=== PATIENT | male | born 1965 | race Caucasian/White ===

== ENCOUNTER 2019-09-01 22:01 | Outpatient (REF) | payer BC, SELFPAY ==
[2019-09-01 22:22] LABS: Absolute Basophil Count 0.03 k/cumm (0.0-0.2); Absolute Eosinophil Count 0.09 k/cumm (0.0-0.7); Absolute Lymphocyte Count 1.41 k/cumm (1.2-3.4); Absolute Monocyte Count 0.46 k/cumm (0.11-0.7); Absolute Neutrophil Count 2.95 k/cumm (1.2-6.7); Basophils % 0.6; Eosinophils % 1.8; HCT 45.7 % (40.0-50.0); HGB 15.7 g/dL (13.5-17.5); Lymphocytes % 28.5; Mean Corp. HGB Concentration 34.4 g/dL (32.0-36.0); Mean Corpuscular Hemoglobin 29.5 pg (27.0-33.0); Mean Corpuscular Volume 85.7 fL (80-95); Mean Platelet Volume 9.1 fL (8.0-11.0); Monocytes % 9.3; Neutrophils % 59.8; Platelet Count 342 x1000/uL (130-400); RBC 5.33 m/cumm (4.50-6.00); RBC Distribution Width 12.4 % (11.8-14.1); White Blood Cell Count 4.94 k/cumm (4.4-10.8)
[2019-09-01 22:43] LABS: NT-proBNP 31 pg/mL (<300)
== END 2019-09-01 22:21 ==
LOC: NCHCN 22:01
PROVIDERS: PCP Nurse Practitioner Family; Visit Provider Registered Nurse
DX: E78.5 Hyperlipidemia, unspecified (principal); Z86.79 Personal history of other diseases of the circulatory system
CPT/HCPCS: 83880; 85025